=== PATIENT | male | born 1965 | race Caucasian/White ===

== ENCOUNTER 2018-02-21 00:03 | Emergency (ER) | payer SELFPAY ==
[2018-02-21] MEDS ORDERED: Sodium Chloride 0.9% 10 ML Syringe FLUSH PRN (00:13)
[2018-02-21] MEDS ORDERED: Sodium Chloride 0.9% 1,000 ML IV SCH (00:15)
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
--- NOTE | 2018-02-22 12:44 | CR ---
Chest: Portable view of the chest was obtained. Comparison: No prior chest x-ray. Heart size and mediastinum are normal. Lungs are clear. Degenerative change is noted within the spine. Old healed left clavicle fracture is noted. Impression: 1. Incidental findings. Nothing acute is seen on portable chest x-ray. Diagnostic code #2
--- NOTE | 2018-02-22 12:44 | CT ---
Head CT Technique: Multiple axial sections through the brain were obtained. Intravenous contrast was not utilized. Comparison: No prior intracranial imaging is available. Findings: Ventricles along the basal cisterns and sulci over the convexities are mildly prominent. No abnormal parenchymal densities are seen. No evidence of intracranial hemorrhage. No midline shift or mass effect is seen. Moderate mucosal thickening seen within the ethmoid and maxillary sinuses. Mild mucosal thickening is noted within frontal sinuses. No acute calvarial abnormality is seen. Impression: 1. Sinus findings which likely are chronic. 2. Mild generalized atrophy. 3. No acute intracranial abnormality is identified. Diagnostic code #2 I agree with preliminary report from [facility], finalized at 02/22/20, 2:04 AM Central Time
== END 2018-02-21 06:46 | disposition home or self-care (01) ==
LOC: JD.ED 00:03
DX: F10.129 Alcohol abuse with intoxication, unspecified (principal); R56.9 Unspecified convulsions; F17.210 Nicotine dependence, cigarettes, uncomplicated; Y90.8 Blood alcohol level of 240 mg/100 ml or more
CPT/HCPCS: 36415; 70450; 71045; 80053; 83735; 85025; 96360; 99285; G0480; J7040; J7050; 99284